=== PATIENT | female | born 1945 | race Caucasian/White ===

== ENCOUNTER 2022-06-19 23:44 | Emergency (ER) | payer MEDICARE, MEDICAID | END 2022-06-20 02:30 | LOC: JD.ED 23:44 | DX: R04.0 Epistaxis (principal); Z91.013 Allergy to seafood | CPT/HCPCS: 30901; 30903; 36415; 80053; 85025; 85610; 99283; 99284 ==

== ENCOUNTER 2022-06-21 02:48 | Emergency (ER) | payer MEDICARE, MEDICAID | END 2022-06-21 05:23 | LOC: JD.ED 02:48 | DX: R04.0 Epistaxis (principal); Z91.013 Allergy to seafood | CPT/HCPCS: 30903; 99283 ==